=== PATIENT | male | born 1935 | race Caucasian/White ===

== ENCOUNTER 2020-06-13 14:28 | Observation (INO) | payer MEDICARE, OTHER ==
[~2020-06-13] VITALS: Ht 180 cm; Wt 115.7 kg
[2020-06-13] VITALS: BP 145/95
[2020-06-13 14:43] LABS: BASOPHILS % (AUTO) 1 % (0-10); EOSINOPHILS # (AUTO) 0.2 10^3/uL (0.0-0.3); EOSINOPHILS % (AUTO) 3 % (0-10); HEMATOCRIT 36 % (40-54); HEMOGLOBIN 10.6 g/dL (13.3-17.7); LYMPHOCYTES # (AUTO) 2.7 10^3/uL (1.0-4.0); LYMPHOCYTES % (AUTO) 33 % (12-44); MEAN CORPUSCULAR HEMOGLOBIN 29 pg (25-34); MEAN CORPUSCULAR HGB CONC 30 g/dL (32-36); MEAN CORPUSCULAR VOLUME 99 fL (80-99); MEAN PLATELET VOLUME 10.5 fL (9.0-12.2); MONOCYTES # (AUTO) 0.5 10^3/uL (0.0-1.0); MONOCYTES % (AUTO) 6 % (0-12); NEUTROPHILS # (AUTO) 4.8 10^3/uL (1.8-7.8); NEUTROPHILS % (AUTO) 58 % (42-75); PLATELET COUNT 132 10^3/uL (130-400); WHITE BLOOD COUNT 8.3 10^3/uL (4.3-11.0)
[2020-06-13 14:53] LABS: ALBUMIN 3.9 GM/DL (3.2-4.5)
[2020-06-13 14:54] LABS: INR 1.1 (0.8-1.4); POTASSIUM 5.3 MMOL/L (3.6-5.0); PROTHROMBIN TIME PATIENT 14.4 SEC (12.2-14.7)
[2020-06-13 14:55] LABS: CALCIUM 8.3 MG/DL (8.5-10.1)
[2020-06-13 14:56] LABS: TOTAL PROTEIN 6.7 GM/DL (6.4-8.2)
[2020-06-13 14:58] LABS: BILIRUBIN,TOTAL 0.6 MG/DL (0.1-1.0)
[2020-06-13 15:00] LABS: CREATININE SERUM 3.29 MG/DL (0.60-1.30)
[2020-06-13 15:03] LABS: MAGNESIUM 2.3 MG/DL (1.6-2.4)
--- NOTE | 2020-06-13 15:06 | Diagnostic Imaging Report ---
EXAMINATION: Chest 1 view. HISTORY: Chest pain. COMPARISON: None available. FINDINGS: There is cardiomegaly with central pulmonary vascular congestion. Patchy opacities are seen in the lung bases. No large pleural effusion or pneumothorax. IMPRESSION: Cardiomegaly with central pulmonary vascular congestion. Patchy opacities in the lung raises may represent atelectasis, edema and/or infection. Dictated by: Dictated on workstation # [id number]
[2020-06-13] MEDS ORDERED: TICAGRELOR 90 MG TABLET (BRILINTA) PO ONE (15:45)
[2020-06-13] MEDS ORDERED: ENOXAPARIN 100 MG/1 ML (LOVENOX) SYR SC SCH (15:45)
[2020-06-13] MEDS ORDERED: ASPIRIN 81 MG CHEW (CHILDREN'S ASA) PO ONE (15:45)
--- NOTE | 2020-06-13 16:04 | ED Chest Pain ---
General Chief Complaint: Chest Pain Stated Complaint: CP/CLAMINESS Nursing Triage Note: PT TO ED W/ C/O CP X2 DAYS AGO, DENIES PAIN AT THIS TIME. STATES DOES HAVE HX OF CABG. DENIES SOB ET DIAPHORESIS W/ ONSET. NO OTHER C/O VOICED Nursing Sepsis Screen: No Definite Risk Source: patient Exam Limitations: no limitations History of Present Illness Date Seen by Provider: Jun 13, 2020 Time Seen by Provider: 12:25 Initial Comments This is a well-appearing 84-year-old male who presents to the ER with complaints of chest pain. Reports he had 2 episodes of chest pain; one that started 2 days ago and one last night. Sunday evening he states he was eating soup when he experienced the first episode which lasted approximately 1 hour. Describes as a dull ache in the center of his chest radiating into his back, and was accompanied with diaphoresis. Denies any nausea, vomiting, abdominal pain. Second episode occurred last night when he was laying down for bed and experienced the same pain and diaphoresis. He presents today with no pain, and was recommended to seek ED evaluation per his daughter. Denies fevers, chills, cough, no contacts, COVID exposure, shortness of breath, nausea, vomiting, diarrhea, abdominal pain. Timing/Duration: 2-3 days Location: central Radiation: back Modifying Factors: improves with other (none) Associated Symptoms: diaphoresis; No fever/chills, No nausea/vomiting, No syncope Allergies and Home Medications Allergies Uncoded Allergies: IV CONTRAST (Allergy, Unknown, 06/13/20) Patient Home Medication List Home Medication List Reviewed: Yes Review of Systems Review of Systems Constitutional: no symptoms reported EENTM: No Symptoms Reported Respiratory: No Symptoms Reported Cardiovascular: See HPI Gastrointestinal: No Symptoms Reported Genitourinary: No Symptoms Reported Musculoskeletal: no symptoms reported Skin: no symptoms reported Psychiatric/Neurological: No Symptoms Reported Endocrine: No Symptoms Reported Hematologic/Lymphatic: No Symptoms Reported Past Khulavr-Ibknmm-Bwxzjt Hx Patient Social History Alcohol Use: Occasionally Uses Recreational Drug Use: No Smoking Status: Never a Smoker Recent Foreign Travel: No Contact w/Someone Who Travel: No Recent Infectious Disease Expo: No Physical Abuse: No Sexual Abuse: No Mistreated: No Fear: No Past Medical History Surgeries: Yes (HIP REPLACEMENT X2) CABG, Orthopedic, Tonsillectomy Respiratory: Yes Asthma Cardiac: Yes Hypertension Neurological: No Genitourinary: No Gastrointestinal: No Musculoskeletal: No Endocrine: No HEENT: No Cancer: No Psychosocial: No Integumentary: No Physical Exam Vital Signs Vital Signs - First Documented Capillary Refill : Less Than 3 Seconds Height, Weight, BMI Height: '" Weight: lbs. oz. kg; 34.00 BMI Method: General Appearance: No Apparent Distress, WD/WN (Resting comfortably in ED cot ) HEENT: PERRL/EOMI, Normal ENT Inspection, Pharynx Normal, Moist Mucous Membranes Neck: Full Range of Motion, Normal Inspection, Non Tender Respiratory: Chest Non Tender, Lungs Clear, Normal Breath Sounds, No Accessory Muscle Use, No Respiratory Distress Cardiovascular: No Edema, No Murmur, Normal Peripheral Pulses, Irregularly Irregular Gastrointestinal: Normal Bowel Sounds, Non Tender, Soft Extremity: Normal Capillary Refill, Normal Range of Motion, No Pedal Edema Neurologic/Psychiatric: Alert, Oriented x3, No Motor/Sensory Deficits, Normal Mood/Affect Skin: Normal Color, Warm/Dry Progress/Results/Core Measures Results/Orders Lab Results Laboratory Tests Test 06/13/20 14:30 Range/Units White Blood Count 8.3 4.3-11.0 10^3/uL Red Blood Count 3.61 L 4.30-5.52 10^6/uL Hemoglobin 10.6 L 13.3-17.7 g/dL Hematocrit 36 L 40-54 % Mean Corpuscular Volume 99 80-99 fL Mean Corpuscular Hemoglobin 29 25-34 pg Mean Corpuscular Hemoglobin Concent 30 L 32-36 g/dL Red Cell Distribution Width 13.8 10.0-14.5 % Platelet Count 132 130-400 10^3/uL Mean Platelet Volume 10.5 9.0-12.2 fL Immature Granulocyte % (Auto) 0 % Neutrophils (%) (Auto) 58 42-75 % Lymphocytes (%) (Auto) 33 12-44 % Monocytes (%) (Auto) 6 0-12 % Eosinophils (%) (Auto) 3 0-10 % Basophils (%) (Auto) 1 0-10 % Neutrophils # (Auto) 4.8 1.8-7.8 10^3/uL Lymphocytes # (Auto) 2.7 1.0-4.0 10^3/uL Monocytes # (Auto) 0.5 0.0-1.0 10^3/uL Eosinophils # (Auto) 0.2 0.0-0.3 10^3/uL Basophils # (Auto) 0.0 0.0-0.1 10^3/uL Immature Granulocyte # (Auto) 0.0 0.0-0.1 10^3/uL Prothrombin Time 14.4 12.2-14.7 SEC INR Comment 1.1 0.8-1.4 Activated Partial Thromboplast Time 29 24-35 SEC Sodium Level 142 135-145 MMOL/L Potassium Level 5.3 H 3.6-5.0 MMOL/L Chloride Level 109 H 98-107 MMOL/L Carbon Dioxide Level 20 L 21-32 MMOL/L Anion Gap 13 5-14 MMOL/L Blood Urea Nitrogen 43 H 7-18 MG/DL Creatinine 3.29 H 0.60-1.30 MG/DL Estimat Glomerular Filtration Rate 18 BUN/Creatinine Ratio 13 Glucose Level 101 70-105 MG/DL Calcium Level 8.3 L 8.5-10.1 MG/DL Corrected Calcium 8.4 L 8.5-10.1 MG/DL Magnesium Level 2.3 1.6-2.4 MG/DL Total Bilirubin 0.6 0.1-1.0 MG/DL Aspartate Amino Transf (AST/SGOT) 28 5-34 U/L Alanine Aminotransferase (ALT/SGPT) 14 0-55 U/L Alkaline Phosphatase 85 40-136 U/L Myoglobin 413.6 H 10.0-92.0 NG/ML Troponin I 9.315 *H <0.028 NG/ML B-Type Natriuretic Peptide 320.9 H <100.0 PG/ML Total Protein 6.7 6.4-8.2 GM/DL Albumin 3.9 3.2-4.5 GM/DL My Orders Orders - GALDINO LIRIANO FLOOD CONTROL ENGINEER Cbc With Automated Diff (06/13/20 14:34) Magnesium (06/13/20 14:34) Chest 1 View, Ap/Pa Only (06/13/20 14:34) Ekg Tracing (06/13/20 14:34) Comprehensive Metabolic Panel (06/13/20 14:34) Myoglobin Serum (06/13/20 14:34) Protime With Inr (06/13/20 14:34) Partial Thromboplastin Time (06/13/20 14:34) O2 (06/13/20 14:34) Monitor-Rhythm Ecg Trace Only (06/13/20 14:34) Ed Iv/Invasive Line Start (06/13/20 14:34) BNP (06/13/20 14:34) Troponin I (06/13/20 14:34) Medications Given in ED Vital Signs/I&O 06/13/20 06/13/20 14:33 14:33 Temp 36.8 Pulse 63 Resp 20 B/P (MAP) 136/76 (96) Pulse Ox 91 O2 Delivery Room Air Room Air O2 Flow Rate 2.00 2.0 Blood Pressure Mean: 96 Progress Progress Note : Progress Note No active chest pain upon ED arrival. Initiated chest pain protocol. 1520: Elevated Troponin-9.[address] Oates @ 1523 for NSTEMI Plan: Admit inpatient to Dr. Larson with Dr. Oates consulting. NSTEMI -See chest pain protocol. See orders. -Continue to trend troponin, repeat EKG in am -Ordered Echo in am -Received Lovenox 100mg Subcut, ASA 324mg, and Brilinta 180mg PO in ED. -VSS, stable for transfer to cardiac stepdown unit. Full Code EKG : EKG Time: 14:34 Rate: 66 Rhythm: A Fib/Flutter ECG Comparisson: No Previous ECG Available Diagnostic Imaging Diagonstic Imaging: Xray Plain Films/CT/US/NM/MRI: chest Comments NAME: MARIA A THRASHER [facility] REC#: [id number] PT STATUS: REG ER : 1935 PHYSICIAN: GALDINO LIRIANO APRN ADMIT DATE: 06/13/20/ER Signed Date of Exam:06/13/20 CHEST 1 VIEW, AP/PA ONLY EXAMINATION: Chest 1 view. HISTORY: Chest pain. COMPARISON: None available. FINDINGS: There is cardiomegaly with central pulmonary vascular congestion. Patchy opacities are seen in the lung bases. No large pleural effusion or pneumothorax. IMPRESSION: Cardiomegaly with central pulmonary vascular congestion. Patchy opacities in the lung raises may represent atelectasis, edema and/or infection. Dictated by: Dictated on workstation # [id number] Dict: 06/13/20 1503 Trans: 06/13/20 1510 [facility] [id number] Interpreted by: PIYUSH FIGUEROA DO Electronically signed by: PIYUSH FIGUEROA DO 06/13/20 1510 Departure Communication (Admissions) Time/Spoke to Admitting Phy: 15:[address] Larson, recommended inpatient admission to the cardiac step down unit. Time/Spoke to Consulting Phy: 15:[address] Oates recommended inpatient admission for non-STEMI and to initiate ASA, Brilinta, Lovenox, and schedule echo in a.m with possible heart cath. Impression Primary Impression: NSTEMI (non-ST elevated myocardial infarction) Disposition: ADMITTED INPATIENT Condition: Stable/Unchanged Admissions Decision to Admit Reason: Admit from ER (Trauma) Decision to Admit/Date: Jun 13, 2020 Time/Decision to Admit Time: 15:20 Departure-Patient Inst. Referrals: NO,LOCAL PHYSICIAN (PCP/Family) Primary Care Physician GALDINO LIRIANO FLOOD CONTROL ENGINEER Jun 13, 2020 16:04
[2020-06-13] MEDS ORDERED: NS IV 1000 ML 1,000 ML ONE (16:44)
[2020-06-13] MEDS: NS IV 1000 ML 1,000 ML IV SCH (16:44)
[2020-06-13 16:54] VITALS: BP 140/88
[2020-06-13] MEDS ORDERED: ONDANSETRON 4 MG/2 ML (SDV) Z0FRAN IV PRN (17:15)
[2020-06-13] MEDS ORDERED: FLU QUAD HIGH DOSE 240 MCG/0.7 ML 2020-21 (FLUZONE) IM ONE (17:30)
[2020-06-13] MEDS ORDERED: morphine INJ 4 MG/ML 1 ML (VIAL/SYRINGE) IV PRN (17:30)
[2020-06-13] MEDS ORDERED: NITROGLYCERIN 0.4 MG SL TABS BTL 25'S SL PRN (17:30)
[2020-06-13 20:00] VITALS: BP 145/95
[2020-06-13 20:17] VITALS: BP_SYST 148; BP_SYST 163; BP_DIAS 107; BP_DIAS 86
[2020-06-14] VITALS (7 sets, daily range): BP systolic 128–153; BP diastolic 75–96
[2020-06-14 03:42] LABS: BASOPHILS % (AUTO) 0 % (0-10); EOSINOPHILS # (AUTO) 0.2 10^3/uL (0.0-0.3); EOSINOPHILS % (AUTO) 3 % (0-10); HEMATOCRIT 33 % (40-54); HEMOGLOBIN 10.1 g/dL (13.3-17.7); LYMPHOCYTES # (AUTO) 1.5 10^3/uL (1.0-4.0); LYMPHOCYTES % (AUTO) 22 % (12-44); MEAN CORPUSCULAR HEMOGLOBIN 30 pg (25-34); MEAN CORPUSCULAR HGB CONC 31 g/dL (32-36); MEAN CORPUSCULAR VOLUME 99 fL (80-99); MEAN PLATELET VOLUME 11.4 fL (9.0-12.2); MONOCYTES # (AUTO) 0.5 10^3/uL (0.0-1.0); MONOCYTES % (AUTO) 7 % (0-12); NEUTROPHILS # (AUTO) 4.6 10^3/uL (1.8-7.8); NEUTROPHILS % (AUTO) 68 % (42-75); PLATELET COUNT 131 10^3/uL (130-400); WHITE BLOOD COUNT 6.8 10^3/uL (4.3-11.0)
[2020-06-14 03:46] LABS: ALBUMIN 3.6 GM/DL (3.2-4.5); POTASSIUM 4.8 MMOL/L (3.6-5.0)
[2020-06-14 03:48] LABS: TOTAL PROTEIN 6.1 GM/DL (6.4-8.2)
[2020-06-14 03:50] LABS: BILIRUBIN,TOTAL 0.5 MG/DL (0.1-1.0)
[2020-06-14 03:52] LABS: CREATININE SERUM 2.99 MG/DL (0.60-1.30)
[2020-06-14] MEDS: NS IV 1000 ML 1,000 ML IV SCH (08:13)
[2020-06-14] MEDS: ASPIRIN E.C. 81 MG (ECOTRIN) TAB PO SCH (08:13)
[2020-06-14] MEDS ORDERED: CLOP75TA69 PO (10:33)
[2020-06-14] MEDS ORDERED: ALLO100T PO (10:33)
[2020-06-14] MEDS ORDERED: FURO-124 PO (10:33)
[2020-06-14] MEDS ORDERED: ASPI-1238 PO (10:33)
--- NOTE | 2020-06-14 10:35 | NUR ---
SPOKE WITH THE PT (HE HAD A MED LIST WITH HIM) AND CALLED [facility] TO COMPLETE THE MED REC THE MED LIST THAT THE PT HAS DOES NOT APPEAR TO BE UP TO DATE- WHEN I CALLED [facility] THEY HAVE NEVER FILLED CRESTOR, DOXAZOSIN OR DIOVAN. I ASKED THE PT ABOUT THESE MEDICATIONS AND WHERE HE FILLED THEM- PT LET ME KNOW HE MUST NOT TAKE THEM ANYMORE. WHEN I ASKED ABOUT WHO HIS PCP IS [facility] LET ME KNOW HE DOESNT HAVE ONE CURRENTLY AND [place] AND HAS NOT ESTABLISHED CARE. I CALLED THE CLINIC IN [place], [place] (WHERE HE PREVIOUSLY RESIDED) AND HAD TO LEAVE A MESSAGE. PT ALSO COULDNT REMEMBER THE PHARMACY HE USED IN [place]. ALLOPURINOL IS ALSO ON THE PT MED LIST 300MG BUT [facility] HAS ONLY FILLED THE 100MG THE FOLLOWING MEDICATIONS WERE FILLED ON 05-19-2020 FOR #90/90DS: CLOPIDOGREL 75MG FUROSEMIDE 40MG ALLOPURINOL 100MG OTC MEDS: ASPIRIN 81
--- NOTE | 2020-06-14 11:22 | History & Physical-Hospitalist ---
MARILEE NORRIS MED STUDENT 06/14/20 1122: History of Present Illness HPI/Chief Complaint Stone presented Sunday to the ED with the chief complaint of chest pain the last couple days. He had 2 episodes of chest pain; one that started on Sunday and one on Sunday. The chest pain on Sunday lasted approximately 1 hour after eating a bowl of soup. He described the pain as a dull ache in the center of his chest radiating into his back, and was accompanied with diaphoresis. Denies any nausea, vomiting, abdominal pain. Second episode occurred on Sunday when he was laying down for bed and experienced the same pain and diaphoresis. His daughter advised his to come in. Today he denied chest pain and appeared in good health. His blood pressure was elevated at 153/92 with an elevated Troponin I of 7.282. He is currently using a CPAP machine to assist with his breathing. He has urinated 3 times but stated his last bowel movement was yesterday. He is taking aspirin. Source: patient, other (ED records) Exam Limitations: no limitations Date Seen 06/14/20 Time Seen by a Provider: 10:15 Attending Physician PCP No,Local Physician Referring Physician Date of Admission Jun 13, 2020 at 15:28 Home Medications & Allergies Home Medications Reviewed patient Home Medication Reconciliation performed by pharmacy medication reconciliations biological science technician fish and/or nursing. Patients Allergies have been reviewed. Allergies Allergies Uncoded Allergies IV CONTRAST ( Allergy, Unknown, 06/13/20) Past Eramryv-Ulyzlu-Efrwsh Hx Patient Social History Alcohol Use: Occasionally Uses Recreational Drug Use: No Smoking Status: Never a Smoker Recent Foreign Travel: No Contact w/other who traveled: No Recent Infectious Disease Expo: No Past Medical History Surgeries: CABG, Orthopedic, Tonsillectomy Cardiac: Hypertension Review of Systems Constitutional: no symptoms reported EENTM: no symptoms reported Respiratory: other (using CPAP) Cardiovascular: chest pain (resolved) Gastrointestinal: no symptoms reported Genitourinary: no symptoms reported Musculoskeletal: no symptoms reported Skin: no symptoms reported Psychiatric/Neurological: No Symptoms Reported Physical Exam Physical Exam Vital Signs Vital Signs - First Documented Capillary Refill : Less Than 3 SecondsLess Than 3 Seconds Height, Weight, BMI Height: '" Weight: lbs. oz. kg; 34.56 BMI Method: General Appearance: No Apparent Distress HEENT: No PERRL/EOMI, No Normal ENT Inspection, No Scleral Icterus (L), No Scleral Icterus (R) Respiratory: Chest Non Tender, Lungs Clear, Normal Breath Sounds Cardiovascular: Regular Rate, Rhythm Neurologic/Psychiatric: Alert, Oriented x3 Skin: Normal Color Results Results/Procedures Labs Laboratory Tests 06/13/20 14:30 06/14/20 02:20 Patient resulted labs reviewed. Assessment/Plan Admission Diagnosis chest pain Assessment and Plan Assessment: chest pain NSTEMI Plan: continue aspirin physical therapy rehab occupational therapy Clinical Quality Measures DVT/VTE Risk/Contraindication: Risk Factor Score Per Nursin RFS Level Per Nursing on Admit: 4+=Very High NINA MUNIZ DO 06/15/20 0602: History of Present Illness HPI/Chief Complaint Pt doing pretty well since he arrived complaining of chest pain He is constantly using his CPAP machine He just moved her from a community outside [facility] and lives with his son and daughter PT and OT will be ordered Cardiology has been consulted for elevated Troponin but creatinine is a limiting factor with a creatinine of 3.0 even after fluid Will monitor pt closely Past Ngezzxb-Kvlvai-Tivyvd Hx Past Med/Social Hx: Reviewed Nursing Past Med/Soc Hx, Reviewed and Corrections made Patient Social History Marrital Status: single Employed/Student: retired ([employer]) Past Medical History Cardiac: High Cholesterol, Hypertension Genitourinary: Renal Failure Review of Systems Constitutional: see HPI Cardiovascular: chest pain (resolved) Physical Exam Physical Exam General Appearance: No Apparent Distress, Chronically ill Respiratory: Lungs Clear Cardiovascular: Regular Rate, Rhythm Assessment/Plan Admission Diagnosis Assessment: Chest pain CRI HTN Chronic debility Plan: Cardiology evaluation Monitor creat PT OT IRF? Admission Status: Observation Diagnosis/Problems Diagnosis/Problems (1) NSTEMI (non-ST elevated myocardial infarction) Status: Acute Supervisory-Addendum Brief Verification & Attestation Participated in pt care: history, MDM, physical Personally performed: exam, history, MDM, supervision of care Care discussed with: Medical Student Procedures: n/a Results interpretation: Verified all documentation Verification and Attestation of Medical Student E/M Service A medical student performed and documented this service in my presence. I reviewed and verified all information documented by the medical student and made modifications to such information, when appropriate. I personally performed the physical exam and medical decision making. Nina Muniz, Jun 15, 2020,06:02 MARILEE NORRIS STUDENT Jun 14, 2020 11:22 NINA MUNIZ DO Jun 15, 2020 06:02
[2020-06-14] MEDS ORDERED: lisINopril 10 MG (PRINIVIL) TABLET PO ONE (11:30)
[2020-06-14] MEDS ORDERED: ENOXAPARIN 300 MG/3 ML (LOVENOX) MULTI-DOSE VIAL SQ SCH ×2 (12:00→16:00)
--- NOTE | 2020-06-14 12:21 | Occupational Therapy Eval ---
OT Evaluation-General/PLF Medical Diagnosis Admission Date Jun 13, 2020 at 15:28 Medical Diagnosis: Chest pain, non STEMI Onset Date: Jun 14, 2020 Therapy Diagnosis Therapy Diagnosis: Decreased ADL status Precautions Precautions/Isolations: Fall Prevention, Standard Precautions, Pressure Ulcer Referral Physician: Xiao Lynch Reason: Activity Tolerance, Self Care, Evaluation/Treatment, Strengthening/ROM Medical History Pertinent Medical History: HTN Additional Medical History HTN, asthma Current History Admits to ER with chest pain. Has had COVID exposure, no precautions. Reviewed History: Yes Social History Home: [facility] Current Living Status: Other Family (Pt lives with per notes, states lives in walk out basement of his son/ daughter in law's home. ) Entry Into Home: Stairs With Railing Steps Into Home: 4 ADL-Prior Level of Function SCALE: Activities may be completed with or without assistive devices. 5-Aquxpvvlyf-edjgbwf completes the activity by him/herself with no assistance from a helper. 5-Set-up or Clean-up Assistance-helper sets up or cleans up; patient completes activity. [place] assists only prior to or following the activity. 4-Supervision or Touching Assistance-helper provides verbal cues and/or touching/steadying and/or contact guard assistance as patient completes activity. Assistance may be provided throughout the activity or intermittently. 3-Partial/Moderate Assistance-helper does LESS THAN HALF the effort. [place] lifts, holds or supports trunk or limbs, but provides less than half the effort. 2-Substantial/Maximal Assistance-helper does MORE THAN HALF the effort. [place] lifts or holds trunk or limbs and provides more than half the effort. 3-Spovewsrb-pthzia does ALL the effort. Patient does none of the effort to complete the activity. Or, the assistance of 2 or more helpers is required for the patient to complete the activity. If activity was not attempted, code reason: 7-Patient Refused. 9-Not Applicable-not attempted and the patient did not perform the activity before the current illness, exacerbation or injury. 10-Not Attempted due to Environmental Limitations-(lack of equipment, weather restraints, etc.). 88-Not Attempted due to Medical Conditions or Safety Concerns. ADL PLOF Comments Pt lives with per notes, states lives in walk out basement of his son/ daughter in law's home. Daughter in law works from home currently, checks in on him regularly. Pt states IND with use of SPC. Does not drive, though drives golf cart around. Self Care: Independent Functional Cognition: Independent DME/Equipment: Shower DME/Equipment Comments SPC, walk in shower. Drive Self: No OT Current Status Subjective Pt in bed, AxO. Pt denies pain, agrees to tx. Mental Status/Objective Patient Orientation: Normal For Age Attachments: Oxygen (3L), Telemetry Current Glasses/Contacts: Yes Hearing Aids: Yes Dentures/Partials: No Hand Dominance: Right Upper Extremity ROM WFL BUE Upper Extremity Coordination WFL BUE Upper Extremity Sensation WFL BUE Upper Extremity Strength WFL BUE ADL-Treatment Eating (QC): 6 On/Off Footwear (QC): 6 Toileting Hygiene (QC): 6 Other Treatments Pt supine to sit SBA. Pt doffs C-PAP. Sit to stand with walker SBA. Stands for ~3 min, completing urination in stance with one hand supported on walker. Pt agrees to sit in chair. pt sits with control. 02 monitored throughout, with low 80's to 90's without use of 02, pt requires cues for breath. Pt states he is at PLOF with ADLs. Pt denies needs, call light in reach. Nursing notified of need for adapter from 02 to IN due to length of cord. Nursing assists with this. D/c at this time. Pt at [facility]. Education OT Patient Education: Correct positioning, Purpose of tx/functional activities, Safety issues, Transfer techniques Teaching Recipient: Patient Teaching Methods: Demonstration, Discussion Response to Teaching: Verbalize Understanding, Return Demonstration OT Receptionist Clerk Goals Mcfp Goals 1=Demonstrate adherence to instructed precautions during ADL tasks. 2=Patient will verbalize/demonstrate understanding of assistive devices/modifications for ADL. 3=Patient will improve strength/tolerance for activity to enable patient to perform ADL's. OT Education/Plan Problem List/Assessment Assessment: No Skilled OT Needs ID'd Discharge Recommendations Plan/Recommendations: Discharge/Goals Met Therapy Discharge Recommendati: Intermittent Supervision, Home & Family Treatment Plan/Plan of Care Treatment,Training & Education: Yes Patient would benefit from OT for education, treatment and training to promote independence in ADL's, mobility, safety and/or upper extremity function for ADL's. Plan of Care: OTHER (eval and d/c.) Treatment Duration: Jun 14, 2020 Frequency: 1 time per week (eval and d/c.) Time/GCodes Start Time: 10:19 Stop Time: 10:29 Total Time Billed (hr/min): 10 Billed Treatment Time 1, EVM (10) d/c. HILTON MOLINA OTR Jun 14, 2020 12:21
--- NOTE | 2020-06-14 12:35 | Consultation-Cardiology ---
HPI-Cardiology Cardiology Consultation: Date of Consultation 06/14/20 Date of Admission Attending Physician Reanna Larson MD Admitting Physician No,Local Physician Consulting Physician Wilder OATES MD HPI: Time Seen by a Provider: 10:30 Chief Complaint: chest pain this is a 84-year-old gentleman who has previous history of CABG. He presents with complains of prolonged episode of chest pain with sweating. Radiating to the back. Moderate to severe intensity. Substernal. No exacerbating or relieving factors. He has history of obstructive sleep apnea, hypertension. He denies active smoking. Pertinent family history is negative. When I saw the patient he was not complaining of any chest pain. Review of Systems-Cardiology Review of Systems Constitutional: As described under HPI; No As described under HPI, No no symptoms reported, No chills, No fever, No lightheadedness Eyes: No As described under HPI, No no symptoms reported, No blindness, No blurred vision, No contact lenses, No drainage, No decreased acuity, No foreign body sensation, No pain, No vision change Ears/Nose/Throat: No As described under HPI, No no symptoms reported, No chronic hearing loss, No ear discharge, No ear pain, No nasal drainage, No ulcerations Respiratory: No no symptoms reported; As described under HPI; No As described under HPI, No cough, No orthopnea, No shortness of breath, No SOB with excertion Cardiovascular: No no symptoms reported; As described under HPI; No As solitario cribed under HPI; chest pain; No edema, No irregular heart rate, No lightheadedness, No palpitations Gastrointestinal: No no symptoms reported, No As described under HPI, No abdomen distended, No abdominal pain, No blood streaked bowels, No constipation, No diarrhea, No nausea, No vomiting, No stool coloration changes Genitourinary: No As described under HPI, No burning, No dysuria, No discharge, No frequency, No flank pain, No hematuria, No urgency Skin: No rash, No skin related problems, No ulcerations Psychiatric/Neurological: No anxiety, No depression, No seizure, No focal weakness, No syncope Hematologic: No bleeding abnormalities XFK-Weukdi-Mzekla Hx Patient Social History Alcohol Use: Occasionally Uses Recreational Drug Use: No Smoking Status: Never a Smoker Recent Foreign Travel: No Recent Infectious Disease Expo: No Hospitalization with Isolation: Denies Past Medical History PMH As described under Assessment. Allergies and Home Medications Allergies Uncoded Allergies: IV CONTRAST (Allergy, Unknown, 06/13/20) Home Medications Allopurinol 100 Mg Tablet, 100 MG PO DAILY, (Reported) Aspirin 81 Mg Tablet.dr, 81 MG PO HS, (Reported) Clopidogrel Bisulfate 75 Mg Tablet, 75 MG PO DAILY, (Reported) Furosemide 40 Mg Tablet, 40 MG PO DAILY, (Reported) Patient Home Medication List Home Medication List Reviewed: Yes Physical Exam-Cardiology Physical Exam Vital Signs/I&O 06/14/20 06/14/20 06/14/20 06/14/20 01:00 04:00 04:00 07:00 Temp 36.6 Pulse 55 54 49 Resp 18 B/P (MAP) 153/92 (112) Pulse Ox 97 O2 Delivery NIV CPAP NIV CPAP O2 Flow Rate 3.00 3.00 06/14/20 06/14/20 06/14/20 08:00 08:00 09:00 Temp 36.2 Pulse 59 Resp 18 B/P (MAP) 148/96 (113) Pulse Ox 100 100 O2 Delivery NIV CPAP NIV CPAP NIV CPAP O2 Flow Rate 3.00 3.00 3.00 Capillary Refill : Less Than 3 SecondsLess Than 3 Seconds Constitutional: appears stated age, AAO x 3; No apparent distress; well- developed, well-nourished HEENT: PERRL; No discharge; hearing is well preserved, oral hygience is good; No ulceration, No xanthelasmas are seen Neck: No carotid bruit; carotid pulses are 2 + bilaterally Respiratory: chest is bilaterally symmetric, lungs clear to auscultation Cardiovascular: regular rate-rhythm, S1 and S2; No diastolic murmur, No systolic murmur Gastrointestinal: soft, audible bowel sounds; No spleenomegaly Rectal: deferred Extremities: normal range of motion, non-tender, normal inspection; No clubbing, No cyanosis; no lower extremity edema bilateral; No significant edema Neurologic/Psychiatric: no motor/sensory deficits, alert, normal mood/affect, oriented x 3, power is 5/5 both on sides Skin: normal color; No rash, No ulcerations Data Review Labs Laboratory Tests 06/13/20 14:30: White Blood Count 8.3, Red Blood Count 3.61L, Hemoglobin 10.6L, Hematocrit 36L, Mean Corpuscular Volume 99, Mean Corpuscular Hemoglobin 29, Mean Corpuscular Hemoglobin Concent 30L, Red Cell Distribution Width 13.8, Platelet Count 132, Mean Platelet Volume 10.5, Immature Granulocyte % (Auto) 0, Neutrophils (%) (Auto) 58, Lymphocytes (%) (Auto) 33, Monocytes (%) (Auto) 6, Eosinophils (%) (Auto) 3, Basophils (%) (Auto) 1, Neutrophils # (Auto) 4.8, Lymphocytes # (Auto) 2.7, Monocytes # (Auto) 0.5, Eosinophils # (Auto) 0.2, Basophils # (Auto) 0.0, Immature Granulocyte # (Auto) 0.0, Prothrombin Time 14.4, INR Comment 1.1, Activated Partial Thromboplast Time 29, Sodium Level 142, Potassium Level 5.3H, Chloride Level 109H, Carbon Dioxide Level 20L, Anion Gap 13, Blood Urea Nitrogen 43H, Creatinine 3.29H, Estimat Glomerular Filtration Rate 18, BUN/Creatinine Ratio 13, Glucose Level 101, Calcium Level 8.3L, Corrected Calcium 8.4L, Magnesium Level 2.3, Total Bilirubin 0.6, Aspartate Amino Transf (AST/SGOT) 28, Alanine Aminotransferase (ALT/SGPT) 14, Alkaline Phosphatase 85, Myoglobin 413.6H, Troponin I 9.315*H, B-Type Natriuretic Peptide 320.9H, Total Protein 6.7, Albumin 3.9 06/13/20 17:34: Troponin I 8.807*H 06/13/20 20:39: Troponin I 7.980*H 06/13/20 23:19: Troponin I 8.010*H 06/14/20 02:20: White Blood Count 6.8, Red Blood Count 3.34L, Hemoglobin 10.1L, Hematocrit 33L, Mean Corpuscular Volume 99, Mean Corpuscular Hemoglobin 30, Mean Corpuscular Hemoglobin Concent 31L, Red Cell Distribution Width 13.8, Platelet Count 131, Mean Platelet Volume 11.4, Immature Granulocyte % (Auto) 0, Neutrophils (%) ( Auto) 68, Lymphocytes (%) (Auto) 22, Monocytes (%) (Auto) 7, Eosinophils (%) (Auto) 3, Basophils (%) (Auto) 0, Neutrophils # (Auto) 4.6, Lymphocytes # (Auto) 1.5, Monocytes # (Auto) 0.5, Eosinophils # (Auto) 0.2, Basophils # (Auto) 0.0, Immature Granulocyte # (Auto) 0.0, Sodium Level 142, Potassium Level 4.8, Chloride Level 110H, Carbon Dioxide Level 21, Anion Gap 11, Blood Urea Nitrogen 42H, Creatinine 2.99H, Estimat Glomerular Filtration Rate 20, BUN/Creatinine Ratio 14, Glucose Level 82, Calcium Level 8.0L, Corrected Calcium 8.3L, Total Bilirubin 0.5, Aspartate Amino Transf (AST/SGOT) 26, Alanine Aminotransferase (ALT/SGPT) 14, Alkaline Phosphatase 76, Troponin I 7.282*H, Total Protein 6.1L, Albumin 3.6 ECG Impression ECG Initial ECG Rhythm: Normal Sinus Comment old inferior infarct. A/P-Cardiology Assessment/Admission Diagnosis non-STEMI, Acute kidney injury, Anemia, Mildly elevated BNP Plan non-STEMI, I spoke at length with the patient and recommended coronary angiography and possible intervention. However the patient flatly refused. I explained to him that there is a risk of recurrent TX and even . He under stands the risk but does not want to undergo any procedure. We will continue dual antiplatelet therapy. non-STEMI with medical therapy, therefore we will give renal dose for Lovenox for 48 hours. Recommend an echocardiogram. Acute kidney injury, Anemia, likely due to kidney disease. Mildly elevated BNP, no evidence of florid congestive heart failure. Dr. Murdock to take over cardiology care tomorrow Thank you for your consultation. Please call me if you have any questions. Kade Oates MD, FACP, FACC, FSCAI, FHRS, CCDS Interventional Cardiology Cardiac Electrophysiology Vascular Medicine and Endovascular Interventions Clinical Quality Measures DVT/VTE Risk/Contraindication: Risk Factor Score Per Nursin RFS Level Per Nursing on Admit: 4+=Very High Wiledr OATES MD Jun 14, 2020 12:35
[2020-06-14] MEDS: CLOPIDOGREL 75 MG (PLAVIX) TABLET PO SCH (12:59)
--- NOTE | 2020-06-14 13:49 | Physical Therapy Evaluation ---
PT Evaluation-General Medical Diagnosis Admission Date Jun 13, 2020 at 15:28 Medical Diagnosis: Chest pain, non STEMI Onset Date: Jun 13, 2020 Therapy Diagnosis Therapy Diagnosis: debility/weakness Precautions Precautions/Isolations: Fall Prevention, Standard Precautions, Pressure Ulcer Referral Physician: Xiao Reason for Referral: Evaluation/Treatment Medical History Pertinent Medical History: CABG, HTN Current History ER secondary to CP x 2 days Reviewed History: Yes Social History Home: Multilevel Current Living Status: Other Family (Pt lives with per notes, states lives in walk out basement of his son/ daughter in law's home. ) Entry Into Home: Stairs With Railing PT Steps Into Home: 4 Prior Prior Level of Function SCALE: Activities may be completed with or without assistive devices. 5-Mdzikxfeyn-ekxjuzl completes the activity by him/herself with no assistance from a helper. 5-Set-up or Clean-up Assistance-helper sets up or cleans up; patient completes activity. Larue assists only prior to or following the activity. 4-Supervision or Touching Assistance-helper provides verbal cues and/or touching/steadying and/or contact guard assistance as patient completes activity. Assistance may be provided throughout the activity or intermittently. 3-Partial/Moderate Assistance-helper does LESS THAN HALF the effort. Larue lifts, holds or supports trunk or limbs, but provides less than half the effort. 2-Substantial/Maximal Assistance-helper does MORE THAN HALF the effort. Larue lifts or holds trunk or limbs and provides more than half the effort. 2-Kbtwppuvd-cpeckg does ALL the effort. Patient does none of the effort to complete the activity. Or, the assistance of 2 or more helpers is required for the patient to complete the activity. If activity was not attempted, code reason: 7-Patient Refused. 9-Not Applicable-not attempted and the patient did not perform the activity before the current illness, exacerbation or injury. 10-Not Attempted due to Environmental Limitations-(lack of equipment, weather restraints, etc.). 88-Not Attempted due to Medical Conditions or Safety Concerns. Bed Mobility: 6 Transfers (B,C,W/C): 6 Gait: 6 Stairs: 6 Wheelchair Mobility: 9 Prior Devices Use: Other-see list below Prior Device Use: cane PT Evaluation-Current Subjective Patient agrees to PT. Objective Patient Orientation: Normal For Age Attachments: IV ROM/Strength ROM Lower Extremities bilateral LE WFL Strength Lower Extremities 4/5 grossly bilateral LE Integumentary/Posture Integumentary refer to nursing notes Bowel Incontinence: No Bladder Incontinence: No Posture WFL Neuromuscular (Tone, Coordination, Reflexes) grossly intact Sensory Vision: Functional Hearing: Hearing Aid/Aides Hand Dominance: Right Transfers Roll Left to Right (QC): 5 Sit to Lying (QC): 5 Lying to Sitting/Side of Bed(Q: 5 Sit to Stand (QC): 5 Chair/Tfb-gw-Pylcb Xfer(QC): 5 Gait Does the Patient Walk?: Yes Mode of Locomotion: Walk Anticipated Mode of Locomotion: Walk Walk 10 feet (QC): 5 Walk 50 ft with 2 Turns(QC): 5 Walk 150 ft (QC): 5 Distance: 225' Gait Assistive Device: FWW Comments/Gait Description grossly intact Balance Sitting Static: Normal Sitting Dynamic: Normal Standing Static: Normal Standing Dynamic: Normal Assessment/Needs 84 y.o. male, will be seen short term by skilled PT to address functional mobility to ensure safe return to home at maximum LOF. Rehab Potential: Fair PT Leadership Program Intern Goals [facility] Goals PT [facility] Goals Time Frame: Jun 26, 2020 Roll Left & Right (QC): 6 Sit to Lying (QC): 6 Lying-Sitting on Side/Bed(QC): 6 Sit to Stand (QC): 6 Chair/Ffl-wn-Cvazm Xfer(QC): 6 Toilet Transfer (QC): 6 Does the Patient Walk: Yes Walk 10 feet (QC): 6 Walk 50ft with 2 Turns (QC): 6 Walk 150 ft (QC): 6 PT Plan Problem List Problem List: Activity Tolerance Treatment/Plan Treatment Plan: Continue Plan of Care Treatment Plan: Education, Functional Activity Ruben, Functional Strength, Gait, Safety, Therapeutic Exercise, Transfers Treatment Duration: Jun 26, 2020 Frequency: 6 times per week Estimated Hrs Per Day: .25 hour per day Patient and/or Family Agrees t: Yes Discharge Recommendations Therapy Discharge Recommendati: Home & Family Time/GCodes Time In: 1253 Time Out: 1311 Total Billed Treatment Time: 18 Total Billed Treatment 1 visit EVModC 18 min KIERAN PANTOJA PT Jun 14, 2020 13:49
--- NOTE | 2020-06-14 14:15 | NUR ---
IRF Evaluation Determination: Denied Findings: Chart review complete and it appears patient is completing ADLs (eating, on/off footwear/toileting hygiene) with independence, as well as ambulating (225ft, RWW), transferring and completing bed mobility with setup; therefore, patient does not require intensive therapy. Thank you for this referral.
[2020-06-14] MEDS ORDERED: ASPIRIN E.C. 81 MG (ECOTRIN) TAB PO SCH (21:00)
[2020-06-15 03:57] LABS: BASOPHILS % (AUTO) 0 % (0-10); EOSINOPHILS # (AUTO) 0.3 10^3/uL (0.0-0.3); EOSINOPHILS % (AUTO) 5 % (0-10); HEMATOCRIT 32 % (40-54); HEMOGLOBIN 9.8 g/dL (13.3-17.7); LYMPHOCYTES # (AUTO) 1.3 10^3/uL (1.0-4.0); LYMPHOCYTES % (AUTO) 24 % (12-44); MEAN CORPUSCULAR HEMOGLOBIN 30 pg (25-34); MEAN CORPUSCULAR HGB CONC 30 g/dL (32-36); MEAN CORPUSCULAR VOLUME 99 fL (80-99); MONOCYTES # (AUTO) 0.4 10^3/uL (0.0-1.0); MONOCYTES % (AUTO) 7 % (0-12); NEUTROPHILS # (AUTO) 3.3 10^3/uL (1.8-7.8); NEUTROPHILS % (AUTO) 63 % (42-75); PLATELET COUNT 108 10^3/uL (130-400); WHITE BLOOD COUNT 5.3 10^3/uL (4.3-11.0)
[2020-06-15 04:10] LABS: ALBUMIN 3.5 GM/DL (3.2-4.5)
[2020-06-15 04:11] LABS: CALCIUM 7.9 MG/DL (8.5-10.1)
[2020-06-15 04:13] LABS: TOTAL PROTEIN 5.9 GM/DL (6.4-8.2)
[2020-06-15 04:14] LABS: BILIRUBIN,TOTAL 0.6 MG/DL (0.1-1.0)
[2020-06-15 04:16] LABS: CREATININE SERUM 2.68 MG/DL (0.60-1.30)
[2020-06-15 04:36] VITALS: BP 143/83
[2020-06-15] MEDS: NS IV 1000 ML 1,000 ML IV SCH (06:01)
[2020-06-15 07:25] VITALS: BP 119/70
[2020-06-15] MEDS: CLOPIDOGREL 75 MG (PLAVIX) TABLET PO SCH (08:24)
[2020-06-15] MEDS: ASPIRIN E.C. 81 MG (ECOTRIN) TAB PO SCH (08:24)
[2020-06-15] MEDS ORDERED: lisINopril 10 MG (PRINIVIL) TABLET PO SCH (09:00)
[2020-06-15] MEDS ORDERED: CLOPIDOGREL 75 MG (PLAVIX) TABLET PO SCH (09:00)
--- NOTE | 2020-06-15 10:06 | NUR ---
CM FINALIZED DISCHARGE PLAN: Patient is discharging back to his daughters home today, self care. He denies any anticipated needs. We visited about his CPAP and he reports that he uses 3LPM of o2 with his CPAP. He is currently at that setting. Visited with his primary care nurse and she also does not anticipate any needs. I asked Héctor if he would like me to call his daughter and talk with her too, but he declined. He reports that when we let him go then he will call his family. No needs identified.
--- NOTE | 2020-06-15 10:09 | Cardiology Progress Note ---
Subjective Date Seen by Provider: Jun 15, 2020 Time Seen by Provider: 10:04 Subjective/Events-last exam Patient was seen at bedside, laying down in bed, using C Pap. Denied any chest pain. I discussed with the patient again the management plan recommended coronary angiogram, patient requested to continue with medical therapy, does not want cardiac catheterization Review of Systems General: No Chills, No Night Sweats; Fatigue, Malaise; No Appetite, No Other HEENT: No Head Aches, No Visual Changes, No Eye Pain, No Ear Pain, No Dysphasia, No Sinus Congestion, No Post Nasal Drip, No Sore Throat, No Other Pulmonary: Dyspnea; No Cough, No Pleuritic Chest Pain, No Other Cardiovascular: No: Chest Pain, Palpitations, Orthopnea, Paroxysmal Noc. Dyspnea, Edema, Lt Headedness, Other Objective-Cardiology Exam Last Set of Vital Signs Vital Signs 06/15/20 06/15/20 07:25 08:15 Temp 36.2 Pulse 65 Resp 20 B/P (MAP) 119/70 (86) Pulse Ox 100 O2 Delivery NIV CPAP O2 Flow Rate 3.00 Capillary Refill : Less Than 3 SecondsLess Than 3 Seconds I&O Intake and Output 06/15/20 00:00 Intake Total 1100 ml Output Total 1700 ml Balance -600 ml Intake Oral 1100 ml Output Urine Total 1700 ml General: Alert, Oriented X3, Cooperative HEENT: Atraumatic, PERRLA Neck: Supple, No JVD, No Thyromegaly Lungs: Clear to Auscultation, Normal Air Movement Heart: Regular Rate, Normal S1, Normal S2, No Murmurs Abdomen: Normal Bowel Sounds, Soft, No Tenderness, No Hepatosplenomegaly, No Masses Extremities: No Clubbing, No Cyanosis, No Edema, Normal Pulses, No Tenderness/Swelling Skin: No Rashes, No Breakdown, No Significant Lesion Neuro: Normal Gait, Normal Speech, Strength at 5/5 X4 Ext, Normal Tone, Sensation Intact Psych/Mental Status: Mental Status NL, Mood NL Results Lab Laboratory Tests 06/15/20 03:44 A/P-Cardiology Admission Diagnosis Non-ST elevation myocardial infarction Coronary artery disease Hypertension Hyperlipidemia Assessment/Plan Non-ST elevation myocardial infarction, coronary artery disease, patient was offered cardiac catheterization by Dr. Oates and myself, he has refused to have any procedure done, agreed with medical therapy, we will follow him up as an outpatient. Acute renal insufficiency, received IV fluid, cannot tolerate DALIA inhibitor at this time. Monitor and follow as an outpatient Sinus bradycardia with a heart rate in the 50s. Cannot tolerate aggressive beta carolin treatment. Anemia, followed and managed by primary care physician COPD/obstructive sleep apnea. Using C Pap BMI 35, we discussed weight loss and exercise Clinical Quality Measures DVT/VTE Risk/Contraindication: Risk Factor Score Per Nursin RFS Level Per Nursing on Admit: 4+=Very High CORI REIS MD Jun 15, 2020 10:09
--- NOTE | 2020-06-15 10:10 | Progress Note ---
MARILEE NORRIS MED STUDENT 06/15/20 1010: Progress Note Stone presented Sunday with the chief complaint of chest pain radiating to his back and given the chest pain protocol in the ER. He was advised to come to the hospital Sunday by his daughter after experiencing severe chest pain on both Sunday and Sunday. During his stay at the hospital he has denied further chest pain or other symptoms. After evaluation with cardiology and the use of echocardiogram, it was concluded that he had a NSTEMI with elevated Troponin levels. After discussion with Dr. Feliciano of the possible risks of further cardiac events Stone denied intervention. He was placed on Levenox and asprin for dual anticoagulant therapy with the plan of being discharged. NINA HAGEN DO 06/16/20 0627: Supervisory-Addendum Brief Verification & Attestation Participated in pt care: history, MDM, physical Personally performed: exam, history, MDM, supervision of care Care discussed with: Medical Student Procedures: n/a Results interpretation: Verified all documentation Verification and Attestation of Medical Student E/M Service A medical student performed and documented this service in my presence. I reviewed and verified all information documented by the medical student and made modifications to such information, when appropriate. I personally performed the physical exam and medical decision making. Nina Hagen, Jun 16, 2020,06:27 MARILEE NORRIS MED STUDENT Jun 15, 2020 10:10 NINA HAGEN DO Jun 16, 2020 06:27
[2020-06-15] MEDS ORDERED: ATOR80TA76 PO (10:30)
[2020-06-15] MEDS ORDERED: AMLO-250 PO (10:30)
[2020-06-15] MEDS ORDERED: NITR0.4T42 SL (10:30)
--- NOTE | 2020-06-15 10:31 | Discharge Summary ---
Discharge Summary Hospital Course Was the Problem List Reviewed?: Yes Problems/Dx: (1) NSTEMI (non-ST elevated myocardial infarction) Status: Acute Hospital Course Date of Admission: Jun 13, 2020 at 15:28 Admission Diagnosis : Family Physician/Provider: No,Local Physician Date of Discharge: 06/15/20 Discharge Diagnosis: NSTEMI, Stage IV Renal Failure, VIVIANE Hospital Course: Hospital course: Pt was admitted for [id number] CT, cardioLogo was consulted and placed him on IV fluids to try to improve his creatinine of 3 in order to perform a cardiac catheterization of which he ultimately refused. He was maintained on Plavix and Aspirin dual anti-platelet therapy and recommended to have close follow-up with his PCP. Labs and Pending Lab Test: Laboratory Tests 06/15/20 03:44: White Blood Count 5.3, Red Blood Count 3.26L, Hemoglobin 9.8L, Hematocrit 32L, Mean Corpuscular Volume 99, Mean Corpuscular Hemoglobin 30, Mean Corpuscular Hemoglobin Concent 30L, Red Cell Distribution Width 13.7, Platelet Count 108L, Mean Platelet Volume 10.0, Immature Granulocyte % (Auto) 0, Neutrophils (%) (Auto) 63, Lymphocytes (%) (Auto) 24, Monocytes (%) (Auto) 7, Eosinophils (%) (Auto) 5, Basophils (%) (Auto) 0, Neutrophils # (Auto) 3.3, Lymphocytes # (Auto) 1.3, Monocytes # (Auto) 0.4, Eosinophils # (Auto) 0.3, Basophils # (Auto) 0.0, Immature Granulocyte # (Auto) 0.0, Sodium Level 143, Potassium Level 5.0, Chloride Level 112H, Carbon Dioxide Level 23, Anion Gap 8, Blood Urea Nitrogen 37H, Creatinine 2.68H, Estimat Glomerular Filtration Rate 23, BUN/Creatinine Ratio 14, Glucose Level 88, Calcium Level 7.9L, Corrected Calcium 8.3L, Total Bilirubin 0.6, Aspartate Amino Transf (AST/SGOT) 18, Alanine Aminotransferase (ALT/SGPT) 10, Alkaline Phosphatase 72, Total Protein 5.9L, Albumin 3.5 Home Meds Active Amlodipine Besylate 5 Mg Tablet 5 Mg PO DAILY Nitroglycerin 0.4 Mg Tab.subl 0 Mg SL UD PRN Atorvastatin Calcium 80 Mg Tablet 80 Mg PO HS Reported Allopurinol 100 Mg Tablet 100 Mg PO DAILY Lasix (Furosemide) 40 Mg Tablet 40 Mg PO DAILY Plavix (Clopidogrel Bisulfate) 75 Mg Tablet 75 Mg PO DAILY Aspirin EC (Aspirin) 81 Mg Tablet.dr 81 Mg PO HS Assessment/Pt Instructions PCP 1 week Discharge Planning: <30 minutes discharge planning Discharge Instructions Discharge Diet: No Restrictions Pneumonia Vaccine Order Indica: Yes Discharge Physical Examination Vital Signs Vital Signs Date Time Temp Pulse Resp B/P (MAP) Pulse Ox O2 Delivery O2 Flow Rate FiO2 06/15/20 08:15 100 NIV CPAP 3.00 06/15/20 07:25 36.2 65 20 119/70 (86) General Appearance: No Apparent Distress, WD/WN, Chronically ill Respiratory: Lungs Clear Cardiovascular: Regular Rate, Rhythm Allergies: Uncoded Allergies: IV CONTRAST (Allergy, Unknown, 06/13/20) Discharge Summary Date of Admission Jun 13, 2020 at 15:28 Date of Discharge Discharge Date: Jun 15, 2020 Admission Diagnosis Assessment: Chest pain CRI HTN Chronic debility Plan: Cardiology evaluation Monitor creat PT OT IRF? Discharge Diagnosis (1) NSTEMI (non-ST elevated myocardial infarction) Status: Acute Clinical Quality Measures DVT/VTE Risk/Contraindication: Risk Factor Score Per Nursin RFS Level Per Nursing on Admit: 4+=Very High NINA MUNIZ DO Jun 15, 2020 10:31
[2020-06-15 12:30] VITALS: BP 145/68
[2020-06-15 13:15] VITALS: BP 145/68
--- NOTE | 2020-06-15 13:20 | NUR ---
PT EDUCATED ON DISCHARGE INSTRUCTION AND NEW MEDICATION LIST. PT STATED UNDERSTANDING. PT TAKEN HOME BY GRANDSON WITH BELONGINGS.
[2020-06-16] MEDS ORDERED: amLODIPine 5 MG (NORVASC) TAB PO SCH (09:00)
== END 2020-06-15 10:29 | disposition home or self-care (01) ==
LOC: ER 14:31 → CSD 15:28 → UNDOADMOB 15:28 → CSD 16:40 → UNDODISOB 06-15 13:20
PROVIDERS: ADMIT Family Medicine; ATTEND Internal Medicine
DX: I21.4 Non-ST elevation (NSTEMI) myocardial infarction (principal); G47.33 Obstructive sleep apnea (adult) (pediatric); I12.9 Hypertensive chronic kidney disease with stage 1 through stage 4 chronic kidney disease, or unspecified chronic kidney disease; N18.4 Chronic kidney disease, stage 4 (severe); D63.1 Anemia in chronic kidney disease; N17.9 Acute kidney failure, unspecified; J45.909 Unspecified asthma, uncomplicated; E78.00 Pure hypercholesterolemia, unspecified; R53.81 Other malaise; Z79.82 Long term (current) use of aspirin; Z79.02 Long term (current) use of antithrombotics/antiplatelets; Z79.899 Other long term (current) drug therapy; Z91.041 Radiographic dye allergy status
CPT/HCPCS: 71045; 80053 ×3; 83735; 83874; 83880; 84484 ×2; 85025 ×3; 85610; 85730; 93005 ×3; 93041; 93306; 96372; 97162; 97166; 99284; G0378; 36415

== ENCOUNTER 2020-07-19 11:47 | Emergency (ER) | payer MEDICARE ==
[~2020-07-19] VITALS: Ht 177.8 cm; Wt 109.7 kg
[~2020-07-19 11:47] MED LIST: ALLO100T PO; AMLO-250 PO; ASPI-1238 PO; ATOR80TA76 PO; CLOP75TA69 PO; FURO-124 PO; NITR0.4T42 SL
--- NOTE | 2020-07-19 12:33 | ED General ---
General Stated Complaint: LOW HEMOGLOBIN History of Present Illness Date Seen by Provider: Jul 19, 2020 Time Seen by Provider: 12:32 Initial Comments This is an 84-year-old male with a history of YAZAN and CKD who presented to the ER via private vehicle. He is a resident of [facility] and was sent over per his PCP office due to low hemoglobin of 6.5. snf reports he was admitted to their facility on 07/08/20 after an extended stay at [facility] for COVID. His last Hgb at [place] on 07/05/20 was 8.8, BUN-65, Cr-2.2. At this time he has no complaints. Denies dizziness, vertigo, chronic SOA which he reports is at his baseline, weakness, chest pain, N/V/D, black or tarry stools. Allergies and Home Medications Allergies Uncoded Allergies: IV CONTRAST (Allergy, Unknown, 06/13/20) Home Medications Allopurinol 100 Mg Tablet, 100 MG PO DAILY, (Reported) Amlodipine Besylate 5 Mg Tablet, 5 MG PO DAILY Prescribed by: NINA MUNIZ on 06/15/20 1030 Aspirin 81 Mg Tablet.dr, 81 MG PO HS, (Reported) Atorvastatin Calcium 80 Mg Tablet, 80 MG PO HS Prescribed by: NINA MUNIZ on 06/15/20 1030 Cefuroxime Axetil 250 Mg Tablet, 250 MG PO BID Prescribed by: GALDINO LIRIANO on 07/19/20 1414 Clopidogrel Bisulfate 75 Mg Tablet, 75 MG PO DAILY, (Reported) Furosemide 40 Mg Tablet, 40 MG PO DAILY, (Reported) Nitroglycerin 0.4 Mg Tab.subl, 0 MG SL UD PRN for CHEST PAIN (ANGINA) Prescribed by: NINA MUNIZ on 06/15/20 1030 Patient Home Medication List Home Medication List Reviewed: Yes Review of Systems Review of Systems Constitutional: no symptoms reported EENTM: no symptoms reported Respiratory: no symptoms reported Cardiovascular: no symptoms reported Gastrointestinal: no symptoms reported Genitourinary: no symptoms reported Musculoskeletal: no symptoms reported Skin: no symptoms reported Psychiatric/Neurological: No Symptoms Reported Hematologic/Lymphatic: No Symptoms Reported Immunological/Allergic: no symptoms reported All Other Systems Reviewed Negative Unless Noted: Yes Past Lvxalke-Xietvy-Xvhbcr Hx Patient Social History Recent Foreign Travel: No Contact w/Someone Who Travel: No Past Medical History Surgeries: Yes (HIP REPLACEMENT X2) CABG, Orthopedic, Tonsillectomy Respiratory: Yes Asthma Cardiac: Yes High Cholesterol, Hypertension Neurological: No Genitourinary: No Renal Failure Gastrointestinal: No Musculoskeletal: No Endocrine: No HEENT: No Cancer: No Psychosocial: No Integumentary: No Physical Exam Vital Signs Vital Signs - First Documented 07/19/20 07/19/20 12:20 14:17 Temp 36.8 Pulse 62 Resp 20 B/P (MAP) 115/61 Pulse Ox 96 O2 Delivery Nasal Cannula O2 Flow Rate 3.00 Capillary Refill : Height, Weight, BMI Height: '" Weight: lbs. oz. kg; 34.56 BMI Method: General Appearance: No Apparent Distress, WD/WN Eyes: Bilateral Eye Normal Inspection, Bilateral Eye EOMI HEENT: PERRL/EOMI, Pharynx Normal, Moist Mucous Membranes Neck: Full Range of Motion Respiratory: Lungs Clear, Normal Breath Sounds, No Accessory Muscle Use Cardiovascular: Regular Rate, Rhythm, No Gallop, Normal Peripheral Pulses Gastrointestinal: Normal Bowel Sounds, Non Tender, Soft Extremity: Normal Capillary Refill, Normal Inspection, Normal Range of Motion Neurologic/Psychiatric: Alert, Oriented x3, No Motor/Sensory Deficits, Normal Mood/Affect Skin: Normal Color, Warm/Dry Progress/Results/Core Measures Suspected Sepsis SIRS Temperature: Pulse: Respiratory Rate: Laboratory Tests 07/19/20 12:40: White Blood Count 6.3 Blood Pressure / Mean: Laboratory Tests 07/19/20 12:40: Creatinine 3.11H, Platelet Count 92L, Total Bilirubin 0.5 Results/Orders Lab Results Laboratory Tests Test 07/19/20 12:37 07/19/20 12:40 Range/Units Urine Color YELLOW Urine Clarity SL CLOUDY Urine pH 6.0 5-9 Urine Specific [place] 1.020 1.016-1.022 Urine Protein 1+ H NEGATIVE Urine Glucose (UA) NEGATIVE NEGATIVE Urine Ketones NEGATIVE NEGATIVE Urine Nitrite POSITIVE H NEGATIVE Urine Bilirubin NEGATIVE NEGATIVE Urine Urobilinogen 0.2 < = 1.0 MG/DL Urine Leukocyte Esterase 3+ H NEGATIVE Urine RBC (Auto) 2+ H NEGATIVE Urine RBC 0-2 /HPF Urine WBC >100 H /HPF Urine Squamous Epithelial Cells RARE /HPF Urine Crystals NONE /LPF Urine Bacteria LARGE H /HPF Urine Casts NONE /LPF Urine Mucus NEGATIVE /LPF Urine Culture Indicated YES White Blood Count 6.3 4.3-11.0 10^3/uL Red Blood Count 2.40 L 4.30-5.52 10^6/uL Hemoglobin 7.1 L 13.3-17.7 g/dL Hematocrit 23 L 40-54 % Mean Corpuscular Volume 98 80-99 fL Mean Corpuscular Hemoglobin 30 25-34 pg Mean Corpuscular Hemoglobin Concent 30 L 32-36 g/dL Red Cell Distribution Width 14.1 10.0-14.5 % Platelet Count 92 L 130-400 10^3/uL Mean Platelet Volume 11.6 9.0-12.2 fL Immature Granulocyte % (Auto) 1 % Neutrophils (%) (Auto) 79 H 42-75 % Lymphocytes (%) (Auto) 11 L 12-44 % Monocytes (%) (Auto) 7 0-12 % Eosinophils (%) (Auto) 2 0-10 % Basophils (%) (Auto) 0 0-10 % Neutrophils # (Auto) 5.0 1.8-7.8 10^3/uL Lymphocytes # (Auto) 0.7 L 1.0-4.0 10^3/uL Monocytes # (Auto) 0.4 0.0-1.0 10^3/uL Eosinophils # (Auto) 0.1 0.0-0.3 10^3/uL Basophils # (Auto) 0.0 0.0-0.1 10^3/uL Immature Granulocyte # (Auto) 0.0 0.0-0.1 10^3/uL Sodium Level 137 135-145 MMOL/L Potassium Level 4.8 3.6-5.0 MMOL/L Chloride Level 104 98-107 MMOL/L Carbon Dioxide Level 27 21-32 MMOL/L Anion Gap 6 5-14 MMOL/L Blood Urea Nitrogen 48 H 7-18 MG/DL Creatinine 3.11 H 0.60-1.30 MG/DL Estimat Glomerular Filtration Rate 19 BUN/Creatinine Ratio 15 Glucose Level 118 H 70-105 MG/DL Calcium Level 8.4 L 8.5-10.1 MG/DL Corrected Calcium 9.4 8.5-10.1 MG/DL Total Bilirubin 0.5 0.1-1.0 MG/DL Aspartate Amino Transf (AST/SGOT) 47 H 5-34 U/L Alanine Aminotransferase (ALT/SGPT) 62 H 0-55 U/L Alkaline Phosphatase 71 40-136 U/L Total Protein 6.2 L 6.4-8.2 GM/DL Albumin 2.8 L 3.2-4.5 GM/DL My Orders Orders - GALDINO LIRIANO ROTOFORMER BACKTENDER Ua Culture If Indicated (07/19/20 12:33) Comprehensive Metabolic Panel (07/19/20 12:33) Type And Screen (07/19/20 12:33) Urine Culture (07/19/20 12:37) Vital Signs/I&O Capillary Refill : Progress Note : Progress Note Plan to transfuse one unit outpatient due to history of CKD. He has no complaints at this time and his anemia appears to be chronic. Discussed case with Dr. Monge and she is agreeable with transfusion and OBS admit, or outpatient transfusion whichever the patient prefers. Discussed with patient, and he is adamant he would like to receive blood and go back to [facility]. Incidentally he was found to have a UTI. Outpatient orders to infuse one unit of PRBC's with NS 30ml/hr maintenance fluid and recheck H&H one hour after infusion. He also will receive Rocephin 1gm IV, and script for outpatient ABX. He will need close followup with his PCP. Reviewed discharge plan with him and he is agreeable with plan. Departure Impression Primary Impression: Anemia in chronic kidney disease (CKD) Additional Impression: Urinary tract infection Disposition: [facility] Condition: Stable/Unchanged Departure-Patient Inst. Decision time for Depature: 14:07 Referrals: NO,LOCAL PHYSICIAN (PCP/Family) Primary Care Physician Patient Instructions: Urinary Tract Infection, Adult (DC) Add. Discharge Instructions: Plan: 1. Receive one unit of PRBC outpatient and recheck H&H prior to discharge. 2. Follow up with Dr. Harden office and repeat CBC tomorrow 07/20/20. 3. Take antibiotics as directed and complete full course. 4. Return for any new or concerning symptoms. Scripts Cefuroxime Axetil (Cefuroxime) 250 Mg Tablet 250 MG PO BID for 10 Days, #20 TAB 0 Refills Prov: GALDINO LIRIANO ROTOFORMER BACKTENDER 07/19/20 GALDINO LIRIANO APRN Jul 19, 2020 12:33
[2020-07-19 12:46] LABS: BILIRUBIN,URINE NEGATIVE (NEGATIVE); CLARITY,URINE SL CLOUDY; COLOR,URINE YELLOW; GLUCOSE, URINE (UA) NEGATIVE (NEGATIVE); KETONES,URINE NEGATIVE (NEGATIVE); LEUKOCYTE ESTERASE ,URINE 3+ (NEGATIVE); NITRITE,URINE POSITIVE (NEGATIVE); PROTEIN,URINE 1+ (NEGATIVE)
[2020-07-19 12:52] LABS: BASOPHILS % (AUTO) 0 % (0-10); EOSINOPHILS # (AUTO) 0.1 10^3/uL (0.0-0.3); EOSINOPHILS % (AUTO) 2 % (0-10); HEMATOCRIT 23 % (40-54); HEMOGLOBIN 7.1 g/dL (13.3-17.7); LYMPHOCYTES # (AUTO) 0.7 10^3/uL (1.0-4.0); LYMPHOCYTES % (AUTO) 11 % (12-44); MEAN CORPUSCULAR HEMOGLOBIN 30 pg (25-34); MEAN CORPUSCULAR HGB CONC 30 g/dL (32-36); MEAN CORPUSCULAR VOLUME 98 fL (80-99); MEAN PLATELET VOLUME 11.6 fL (9.0-12.2); MONOCYTES # (AUTO) 0.4 10^3/uL (0.0-1.0); MONOCYTES % (AUTO) 7 % (0-12); NEUTROPHILS % (AUTO) 79 % (42-75); PLATELET COUNT 92 10^3/uL (130-400); WHITE BLOOD COUNT 6.3 10^3/uL (4.3-11.0)
[2020-07-19 12:58] LABS: BACTERIA,URINE LARGE /HPF; RBC,URINE 0-2 /HPF; SQUAMOUS EPITHELIAL CELL,UR RARE /HPF; WBC,URINE >100 /HPF
[2020-07-19 13:09] LABS: ALBUMIN 2.8 GM/DL (3.2-4.5); BILIRUBIN,TOTAL 0.5 MG/DL (0.1-1.0); CALCIUM 8.4 MG/DL (8.5-10.1); CREATININE SERUM 3.11 MG/DL (0.60-1.30); POTASSIUM 4.8 MMOL/L (3.6-5.0); TOTAL PROTEIN 6.2 GM/DL (6.4-8.2)
[2020-07-19] MEDS ORDERED: CEFU250T80 PO (14:14)
[2020-07-19 14:17] VITALS: BP 115/61
== END 2020-07-19 14:19 ==
LOC: EDUNIT# 11:47 → ER 11:49
DX: I12.9 Hypertensive chronic kidney disease with stage 1 through stage 4 chronic kidney disease, or unspecified chronic kidney disease (principal); N18.9 Chronic kidney disease, unspecified; D63.1 Anemia in chronic kidney disease; N39.0 Urinary tract infection, site not specified; E78.00 Pure hypercholesterolemia, unspecified; Z95.1 Presence of aortocoronary bypass graft; Z91.041 Radiographic dye allergy status; Z79.82 Long term (current) use of aspirin
CPT/HCPCS: 36415; 80053; 81000; 85025; 86850; 86900; 86901; 87077; 87088

== ENCOUNTER 2020-07-19 14:11 | Outpatient (CLI) | payer MEDICARE ==
[~2020-07-19] VITALS: Ht 180 cm; Wt 109.7 kg
[2020-07-19] MEDS ORDERED: CEFU250T80 PO (14:14)
[2020-07-19 14:25] VITALS: BP 123/59
[2020-07-19] MEDS ORDERED: WATER (STERILE) FOR INJECTION 10 ML ONE (14:28)
[2020-07-19] MEDS ORDERED: cefTRIAXone 1,000 MG IV (ROCEPHIN) VIAL ONE (14:28)
[2020-07-19] MEDS ORDERED: NS IV 500 ML 500 ML IV SCH (15:00)
[2020-07-19] MEDS ORDERED: cefTRIAXone 1,000 MG/SWFI 10 ML IV PUSH IV ONE ×2 (15:00)
[2020-07-19] MEDS ORDERED: NS IV 1000 ML 1,000 ML IV SCH (15:00)
[2020-07-19 16:19] VITALS: BP 123/59
[2020-07-19 16:34] VITALS: BP 132/63
[2020-07-19 18:30] VITALS: BP 126/62
[2020-07-19 19:32] LABS: HEMOGLOBIN 7.5 g/dL (13.3-17.7)
[2020-07-19 19:35] VITALS: BP 123/59
== END 2020-07-19 19:30 ==
LOC: SDC 14:11
PROVIDERS: ATTEND Nurse Practitioner Family
DX: D64.9 Anemia, unspecified (principal)
CPT/HCPCS: 36430; 85014; 85018; 86920; 96374; P9016; 36415

== ENCOUNTER 2020-08-03 10:58 | Outpatient (CLI) | payer MEDICARE ==
[~2020-08-03] VITALS: Ht 177.8 cm; Wt 111.3 kg
[~2020-08-03 10:58] MED LIST changes: +CEFU250T80 PO
[2020-08-03 11:15] VITALS: BP 101/61
[2020-08-03] MEDS ORDERED: NS IV 500 ML 500 ML IV SCH (11:15)
[2020-08-03] MEDS ORDERED: CATHETER FLUSH 10 ML SYR IV PRN (11:15)
[2020-08-03 12:40] VITALS: BP 121/70
[2020-08-03 12:55] VITALS: BP 117/61
[2020-08-03 14:53] LABS: HEMOGLOBIN 7.3 g/dL (13.3-17.7)
[2020-08-03 15:05] VITALS: BP 116/60
[2020-08-03 15:20] VITALS: BP 133/63
[2020-08-03 17:10] VITALS: BP 141/72
--- NOTE | 2020-08-03 17:40 | NUR ---
ALERT, DENIES COMPLAINTS. IV DC'D, SITE CLEAR. DISMISSED PER WC TO PRIVATE VEHICLE WITH STAFF X1 AND CAREGIVER.
[2020-08-03 17:48] LABS: HEMOGLOBIN 8.1 g/dL (13.3-17.7)
== END 2020-08-03 17:48 | disposition home or self-care (01) ==
LOC: SDC 10:58
PROVIDERS: ATTEND Physician Assistant
DX: D64.9 Anemia, unspecified (principal)
CPT/HCPCS: 36430; 85014; 85018; 86850; 86900; 86901; 86920; P9016; 36415

== ENCOUNTER → 2020-08-20 | Outpatient (CLI) | payer MEDICARE ==
[2020-08-20 09:21] LABS: BASOPHILS % (AUTO) 0 % (0-10); EOSINOPHILS # (AUTO) 0.1 10^3/uL (0.0-0.3); EOSINOPHILS % (AUTO) 2 % (0-10); HEMATOCRIT 26 % (40-54); HEMOGLOBIN 7.8 g/dL (13.3-17.7); LYMPHOCYTES # (AUTO) 0.7 10^3/uL (1.0-4.0); LYMPHOCYTES % (AUTO) 12 % (12-44); MEAN CORPUSCULAR HEMOGLOBIN 29 pg (25-34); MEAN CORPUSCULAR HGB CONC 30 g/dL (32-36); MEAN CORPUSCULAR VOLUME 97 fL (80-99); MEAN PLATELET VOLUME 10.4 fL (9.0-12.2); MONOCYTES # (AUTO) 0.6 10^3/uL (0.0-1.0); MONOCYTES % (AUTO) 11 % (0-12); NEUTROPHILS # (AUTO) 4.2 10^3/uL (1.8-7.8); NEUTROPHILS % (AUTO) 74 % (42-75); PLATELET COUNT 143 10^3/uL (130-400); WHITE BLOOD COUNT 5.7 10^3/uL (4.3-11.0)
[2020-08-20 09:32] LABS: POTASSIUM 5.4 MMOL/L (3.6-5.0)
[2020-08-20 09:34] LABS: CALCIUM 8.3 MG/DL (8.5-10.1)
[2020-08-20 09:38] LABS: CREATININE SERUM 3.31 MG/DL (0.60-1.30)
--- NOTE | 2020-08-20 10:00 | Diagnostic Imaging Report ---
PA and lateral chest at 923h. INDICATION: Shortness of breath, COVID The cardiomegaly and the sternotomy wires and surgical clips noted on the prior exam of 06/13/2020 are again evident and not significantly changed. In the interval since the prior study however the right lung base has become opacified by atelectasis/infiltrate and fluid. Furthermore new alveolar/interstitial pulmonary infiltrates have developed throughout the right upper lung and to a lesser degree the left perihilar region and left lower lobe. A small left pleural effusion is also now evident. The prominent right pulmonary artery seen previously is again evident and no different. The mediastinum is not widened. The osseous structures are intact. IMPRESSION: The appearance of the chest has worsened since the prior exam as there is now involvement of both lungs by pneumonia/atelectasis and pleural fluid. The right lung is more severely affected. A follow-up exam would be recommended for continued evaluation. Dictated by: Dictated on workstation # [id number]
== END ==
LOC: RAD 09:03
PROVIDERS: ATTEND Nurse Practitioner
DX: J44.9 Chronic obstructive pulmonary disease, unspecified (principal); U07.1 COVID-19
CPT/HCPCS: 36415; 71046; 80048; 85025

== ENCOUNTER 2020-09-23 11:10 | Emergency (ER) | payer MEDICARE ==
[~2020-09-23] VITALS: Ht 177 cm; Wt 102.0 kg
--- NOTE | 2020-09-23 11:32 | ED General ---
General Chief Complaint: Respiratory Problems Stated Complaint: WEAKNESS LOW OX Nursing Triage Note: ARRIVED VIA EMS FROM HOME WITH COMPLAINTS OF INCREASED SOA. USUALLY WEARS 3L OXYGEN BUT IS REQUIRING 4L TO MAINTAIN SATS IN THE 90''S. COVID POSITIVE ON JUN 23 WITH POST COVID PNEUMONIA AFTER. HX OF ANEMIA. Nursing Sepsis Screen: No Definite Risk Source of Information: Patient Exam Limitations: No Limitations History of Present Illness Date Seen by Provider: Sep 23, 2020 Time Seen by Provider: 11:12 Initial Comments This 84-year-old gentleman presents to the emergency room via EMS from home where he has been experiencing increased oxygen requirements. He normally wears 3 L by nasal cannula but his oxygen saturations were in the 80s. He recovered to oxygen saturations in the 90s after flow was increased to 4 L. He complains of increased cough, increased fatigue, and unchanged shortness of breath over the past few days. He had COVID-19 in June and pneumonia after that. He is afebrile. Allergies and Home Medications Allergies Uncoded Allergies: IV CONTRAST (Allergy, Unknown, 06/13/20) Home Medications Allopurinol 100 Mg Tablet, 100 MG PO DAILY, (Reported) Amlodipine Besylate 5 Mg Tablet, 5 MG PO DAILY Prescribed by: NINA MUNIZ on 06/15/20 1030 Aspirin 81 Mg Tablet.dr, 81 MG PO HS, (Reported) Atorvastatin Calcium 80 Mg Tablet, 80 MG PO HS Prescribed by: NINA MUNIZ on 06/15/20 1030 Cefuroxime Axetil 250 Mg Tablet, 250 MG PO BID Prescribed by: GALDINO LIRIANO on 07/19/20 1414 Clopidogrel Bisulfate 75 Mg Tablet, 75 MG PO DAILY, (Reported) Doxycycline Hyclate 100 Mg Tablet, 100 MG PO BID Prescribed by: MARYA KC on 09/23/20 1503 Furosemide 40 Mg Tablet, 40 MG PO DAILY, (Reported) Nitroglycerin 0.4 Mg Tab.subl, 0 MG SL UD PRN for CHEST PAIN (ANGINA) Prescribed by: NINA MUNIZ on 06/15/20 1030 Patient Home Medication List Home Medication List Reviewed: Yes Review of Systems Review of Systems Constitutional: see HPI, weakness EENTM: no symptoms reported Respiratory: see HPI Cardiovascular: no symptoms reported Gastrointestinal: no symptoms reported, other Genitourinary: frequency, incontinence Musculoskeletal: no symptoms reported Skin: no symptoms reported Psychiatric/Neurological: No Symptoms Reported Hematologic/Lymphatic: No Symptoms Reported Immunological/Allergic: no symptoms reported Past Sufgpzu-Ukskrz-Sjtchs Hx Past Med/Social Hx: Reviewed Nursing Past Med/Soc Hx Patient Social History 2nd Hand Smoke Exposure: No Recent Infectious Disease Expo: No Past Medical History Surgeries: Yes (HIP REPLACEMENT X2) CABG, Orthopedic, Tonsillectomy Respiratory: Yes (History COVID-19 in June 2020) Asthma, COPD Cardiac: Yes High Cholesterol, Hypertension Neurological: No Genitourinary: Yes Renal Failure Gastrointestinal: No Musculoskeletal: No Endocrine: No HEENT: No Cancer: No Psychosocial: No Integumentary: No Physical Exam Vital Signs Vital Signs - First Documented 09/23/20 11:12 Temp 37.1 Pulse 61 Resp 16 B/P (MAP) 102/55 (71) Pulse Ox 97 O2 Delivery Nasal Cannula O2 Flow Rate 4.00 Capillary Refill : Less Than 3 Seconds Height, Weight, BMI Height: '" Weight: lbs. oz. kg; 32.00 BMI Method: General Appearance: No Apparent Distress, WD/WN HEENT: PERRL/EOMI, Normal ENT Inspection Neck: Normal Inspection Respiratory: Lungs Clear, No Accessory Muscle Use, No Respiratory Distress, Decreased Breath Sounds (Decreased in the bases) Cardiovascular: Regular Rate, Rhythm, No Murmur, Other (Firm edema of the lower extremities) Gastrointestinal: Normal Bowel Sounds, No Organomegaly, Soft Extremity: Pedal Edema, Swelling (Firm edema of the lower extremities, equal bilaterally) Neurologic/Psychiatric: Alert, No Motor/Sensory Deficits, Normal Mood/Affect, spindle maker II-XII Norm as Tested, Other (Disoriented to place and month but otherwise conversational) Skin: Normal Color, Warm/Dry Progress/Results/Core Measures Suspected Sepsis Recent Fever Within 48 Hours: No Infection Criteria Present: Suspected New Infection New/Unexplained Altered Menta: No Sepsis Screen: No Definite Risk SIRS Temperature: Pulse: 61 Respiratory Rate: 16 Laboratory Tests 09/23/20 11:15: White Blood Count 5.1 Blood Pressure 102 /55 Mean: 71 Laboratory Tests 09/23/20 11:15: Creatinine 3.61H, Platelet Count 178, Total Bilirubin 0.2 Results/Orders Lab Results Laboratory Tests Test 09/23/20 11:15 09/23/20 13:26 Range/Units White Blood Count 5.1 4.3-11.0 10^3/uL Red Blood Count 2.57 L 4.35-5.85 10^6/uL Hemoglobin 7.5 L 13.3-17.7 G/DL Hematocrit 26 L 40-54 % Mean Corpuscular Volume 100 H 80-99 FL Mean Corpuscular Hemoglobin 29 25-34 PG Mean Corpuscular Hemoglobin Concent 29 L 32-36 G/DL Red Cell Distribution Width 17.1 H 10.0-14.5 % Platelet Count 178 130-400 10^3/uL Mean Platelet Volume 9.9 7.4-10.4 FL Neutrophils (%) (Auto) 69 42-75 % Lymphocytes (%) (Auto) 16 12-44 % Monocytes (%) (Auto) 10 0-12 % Eosinophils (%) (Auto) 4 0-10 % Basophils (%) (Auto) 0 0-10 % Neutrophils # (Auto) 3.5 1.8-7.8 X 10^3 Lymphocytes # (Auto) 0.8 L 1.0-4.0 X 10^3 Monocytes # (Auto) 0.5 0.0-1.0 X 10^3 Eosinophils # (Auto) 0.2 0.0-0.3 10^3/uL Basophils # (Auto) 0.0 0.0-0.1 10^3/uL Sodium Level 138 135-145 MMOL/L Potassium Level 5.5 H 3.6-5.0 MMOL/L Chloride Level 108 H 98-107 MMOL/L Carbon Dioxide Level 20 L 21-32 MMOL/L Anion Gap 10 5-14 MMOL/L Blood Urea Nitrogen 69 H 7-18 MG/DL Creatinine 3.61 H 0.60-1.30 MG/DL Estimat Glomerular Filtration Rate 16 BUN/Creatinine Ratio 19 Glucose Level 117 H 70-105 MG/DL Calcium Level 7.8 L 8.5-10.1 MG/DL Corrected Calcium 8.7 8.5-10.1 MG/DL Magnesium Level 2.5 H 1.6-2.4 MG/DL Total Bilirubin 0.2 0.1-1.0 MG/DL Aspartate Amino Transf (AST/SGOT) 13 5-34 U/L Alanine Aminotransferase (ALT/SGPT) 15 0-55 U/L Alkaline Phosphatase 57 40-136 U/L C-Reactive Protein High Sensitivity 10.14 H 0.00-0.50 MG/DL B-Type Natriuretic Peptide 990.3 H <100.0 PG/ML Total Protein 6.4 6.4-8.2 GM/DL Albumin 2.9 L 3.2-4.5 GM/DL Procalcitonin 1.30 H <0.10 NG/ML Urine Color YELLOW Urine Clarity CLEAR Urine pH 5.5 5-9 Urine Specific [place] 1.015 L 1.016-1.022 Urine Protein TRACE H NEGATIVE Urine Glucose (UA) NEGATIVE NEGATIVE Urine Ketones NEGATIVE NEGATIVE Urine Nitrite NEGATIVE NEGATIVE Urine Bilirubin NEGATIVE NEGATIVE Urine Urobilinogen 0.2 < = 1.0 MG/DL Urine Leukocyte Esterase NEGATIVE NEGATIVE Urine RBC (Auto) NEGATIVE NEGATIVE Urine RBC NONE /HPF Urine WBC 2-5 /HPF Urine Squamous Epithelial Cells RARE /HPF Urine Crystals NONE /LPF Urine Bacteria NEGATIVE /HPF Urine Casts NONE /LPF Urine Mucus NEGATIVE /LPF Urine Culture Indicated NO My Orders Orders - MARYA PACHECO MD BNP (09/23/20 11:19) Cbc With Automated Diff (09/23/20 11:19) Comprehensive Metabolic Panel (09/23/20 11:19) Hs C Reactive Protein (09/23/20 11:19) Procalcitonin (Pct) (09/23/20 11:19) Ua Culture If Indicated (09/23/20 11:19) Ekg Tracing (09/23/20 11:19) Monitor-Rhythm Ecg Trace Only (09/23/20 11:19) Magnesium (09/23/20 11:19) Chest 1 View, Ap/Pa Only (09/23/20 11:19) O2 (09/23/20 11:19) Ceftriaxone For Iv Use (Rocephin For I (09/23/20 13:00) Wrist, Left, 3 Views Or More (09/23/20 12:50) Medications Given in ED Current Medications Medications Dose Ordered Sig/Bartolome Route Start Time Stop Time Status Last Admin Dose Admin Ceftriaxone Sodium 1000 mg/ Sterile Water 10 ml @ 200 mls/hr ONCE ONCE IV 09/23/20 13:00 09/23/20 13:02 DC 09/23/20 13:13 200 MLS/HR Vital Signs/I&O 09/23/20 09/23/2021 11:12 11:12 14:54 Temp 37.1 Pulse 61 63 Resp 16 16 B/P (MAP) 102/55 (71) 117/70 Pulse Ox 97 98 O2 Delivery Nasal Cannula Nasal Cannula Nasal Cannula O2 Flow Rate 4.00 4.00 3.00 Capillary Refill : Less Than 3 Seconds Blood Pressure Mean: 71 Progress Note #1: Time: 11:31 Progress Note Patient was seen and examined. General work-up is underway. Progress Note #2: Progress Note Work-up revealed worsening heart failure, renal failure, and pneumonia. I had a long discussion with the patient's son about hospice of the purpose of hospice. He feels more comfortable managing his father at home after understanding his role in hospice care. Patient received a dose of Rocephin for pneumonia prior to discharge. Doxycycline was prescribed. Patient received a liter of IV fluid while in the ER. ECG Initial ECG Impression Date: Sep 23, 2020 Initial ECG Impression Time: 11:29 Initial ECG Rate: 62 Initial ECG Rhythm: Normal Sinus Comment Sinus rhythm with no ST elevation or depression. No abnormal intervals or axis deviation. Diagnostic Imaging Diagonstic Imaging: Xray Plain Films/CT/US/NM/MRI: chest Comments Chest x-ray was viewed by me and report reviewed. Compared with prior. See report below: NAME: MARIA A THRASHER MED REC#: [id number] PT STATUS: REG CLI : 1935 PHYSICIAN: SHANKAR CARDONA APRN ADMIT DATE: 08/20/20/RAD Signed Date of Exam:08/20/20 CHEST PA/LAT (2 VIEW) PA and lateral chest at 923h. INDICATION: Shortness of breath, COVID The cardiomegaly and the sternotomy wires and surgical clips noted on the prior exam of 06/13/2020 are again evident and not significantly changed. In the interval since the prior study however the right lung base has become opacified by atelectasis/infiltrate and fluid. Furthermore new alveolar/interstitial pulmonary infiltrates have developed throughout the right upper lung and to a lesser degree the left perihilar region and left lower lobe. A small left pleural effusion is also now evident. The prominent right pulmonary artery seen previously is again evident and no different. The mediastinum is not widened. The osseous structures are intact. IMPRESSION: The appearance of the chest has worsened since the prior exam as there is now involvement of both lungs by pneumonia/atelectasis and pleural fluid. The right lung is more severely affected. A follow-up exam would be recommended for continued evaluation. Dictated by: Dictated on workstation # [id number] Dict: 08/20/20 0935 Trans: 08/20/20 1130 [facility] [id number] Interpreted by: FERNANDA MATHEW MD Electronically signed by: FERNANDA MATHEW MD 08/20/20 1130 Departure Impression Primary Impression: Pneumonia Qualified Codes: J18.9 - Pneumonia, unspecified organism Additional Impressions: Chronic kidney disease Qualified Codes: N18.9 - Chronic kidney disease, unspecified Congestive heart failure Qualified Codes: I50.9 - Heart failure, unspecified Hospice care patient Disposition: 01 HOME, SELF-CARE Condition: Stable Departure-Patient Inst. Decision time for Depature: 14:00 Referrals: RAFAEL VELEZ MD (PCP/Family) Primary Care Physician Patient Instructions: Pneumonia, Adult (DC) Add. Discharge Instructions: Continue with medications as previously prescribed. Finish your antibiotics as prescribed. Contact your hospice benefits representative and discuss plan of care. Call if you have any questions or concerns. If you have worsening condition, try to contact your hospice nurse. If hospice nurse is unavailable, call or return to the ER if you cannot manage symptoms at home. All discharge instructions reviewed with patient and/or family. Voiced understanding. Scripts Doxycycline Hyclate (Doxycycline Hyclate) 100 Mg Tablet 100 MG PO BID, #20 TAB 0 Refills Prov: MARYA PACHECO MD 09/23/20 Copy Copies To 1: RAFAEL VELEZ MD, JOSHUA T MD Sep 23, 2020 11:32
[2020-09-23 11:35] LABS: HEMATOCRIT 26 % (40-54); HEMOGLOBIN 7.5 G/DL (13.3-17.7); MEAN CORPUSCULAR HEMOGLOBIN 29 PG (25-34); MEAN CORPUSCULAR HGB CONC 29 G/DL (32-36); MEAN CORPUSCULAR VOLUME 100 FL (80-99); PLATELET COUNT 178 10^3/uL (130-400); WHITE BLOOD COUNT 5.1 10^3/uL (4.3-11.0)
[2020-09-23 11:36] LABS: BASOPHILS % (AUTO) 0 % (0-10); EOSINOPHILS # (AUTO) 0.2 10^3/uL (0.0-0.3); EOSINOPHILS % (AUTO) 4 % (0-10); LYMPHOCYTES # (AUTO) 0.8 X 10^3 (1.0-4.0); LYMPHOCYTES % (AUTO) 16 % (12-44); MEAN PLATELET VOLUME 9.9 FL (7.4-10.4); MONOCYTES # (AUTO) 0.5 X 10^3 (0.0-1.0); MONOCYTES % (AUTO) 10 % (0-12); NEUTROPHILS # (AUTO) 3.5 X 10^3 (1.8-7.8); NEUTROPHILS % (AUTO) 69 % (42-75)
[2020-09-23 11:47] LABS: ALBUMIN 2.9 GM/DL (3.2-4.5); POTASSIUM 5.5 MMOL/L (3.6-5.0)
[2020-09-23 11:48] LABS: CALCIUM 7.8 MG/DL (8.5-10.1)
[2020-09-23 11:49] LABS: TOTAL PROTEIN 6.4 GM/DL (6.4-8.2)
--- NOTE | 2020-09-23 11:50 | Diagnostic Imaging Report ---
INDICATION: Dyspnea. AP view of the chest is obtained with comparison made study of 08/20/2020 There is more diffuse mixed groundglass and alveolar density throughout the lungs compared to previous study. There is also blunting of costophrenic sulci bilaterally. No pneumothorax is identified. There is stable cardiomegaly. IMPRESSION: Diffuse pulmonary opacity which may reflect pneumonitis. Superimposed edema or atypical pneumonia cannot be excluded. There may be mild pleural fluid and/or thickening. Dictated by: Dictated on workstation # [id number]
[2020-09-23 11:51] LABS: BILIRUBIN,TOTAL 0.2 MG/DL (0.1-1.0)
[2020-09-23 11:53] LABS: CREATININE SERUM 3.61 MG/DL (0.60-1.30)
[2020-09-23 11:56] LABS: MAGNESIUM 2.5 MG/DL (1.6-2.4)
[2020-09-23] MEDS ORDERED: cefTRIAXone FOR IV USE 1,000 MG in WATER (STERILE) FOR INJECTION 10 ML IV ONE (13:00)
[2020-09-23 13:34] LABS: BILIRUBIN,URINE NEGATIVE (NEGATIVE); CLARITY,URINE CLEAR; COLOR,URINE YELLOW; GLUCOSE, URINE (UA) NEGATIVE (NEGATIVE); KETONES,URINE NEGATIVE (NEGATIVE); LEUKOCYTE ESTERASE ,URINE NEGATIVE (NEGATIVE); NITRITE,URINE NEGATIVE (NEGATIVE); PH,URINE 5.5 (5-9); PROTEIN,URINE TRACE (NEGATIVE)
--- NOTE | 2020-09-23 13:35 | Diagnostic Imaging Report ---
INDICATION: Left wrist injury. COMPARISON: None. FINDINGS: Three views of the left wrist demonstrate impacted nondisplaced fracture of the distal radius. There is a chronic ulnar styloid fracture. Carpal bones are unremarkable. IMPRESSION: Nondisplaced impacted distal radial fracture. Dictated by: Dictated on workstation # [id number]
[2020-09-23 13:40] LABS: BACTERIA,URINE NEGATIVE /HPF; SQUAMOUS EPITHELIAL CELL,UR RARE /HPF
[2020-09-23] MEDS ORDERED: DOXY100T2 PO ×2 (14:50→15:03)
[2020-09-23 14:54] VITALS: BP 117/70
== END 2020-09-23 14:54 | disposition home or self-care (01) ==
LOC: EDUNIT# 11:10 → ER 11:12
DX: J18.9 Pneumonia, unspecified organism (principal); I13.0 Hypertensive heart and chronic kidney disease with heart failure and stage 1 through stage 4 chronic kidney disease, or unspecified chronic kidney disease; N18.9 Chronic kidney disease, unspecified; I50.9 Heart failure, unspecified; E78.00 Pure hypercholesterolemia, unspecified; Z51.5 Encounter for palliative care; Z91.041 Radiographic dye allergy status; Z95.1 Presence of aortocoronary bypass graft; Z79.82 Long term (current) use of aspirin
CPT/HCPCS: 36415; 71045; 73110; 80053; 81000; 83735; 83880; 84145; 85025; 86141; 93041